=== PATIENT | male | born 2000 | race African-American/Black ===

== ENCOUNTER → 2024-08-29 | Outpatient (CLI) | payer OTHER ==
[~2024-08-29] MED LIST: LIDOCAINE 1% MDV 20ML VIAL As Ordered ONE
[2024-08-29 10:30] VITALS: TEMP 97.4
[2024-08-29 10:54] VITALS: BP 176/82; O2SAT 99
== END ==
LOC: M IRPRO 10:24
PROVIDERS: ATTEND Otolaryngology
DX: D11.0 Benign neoplasm of parotid gland (principal)

== ENCOUNTER 2024-09-05 10:07 | Emergency (ER) | payer OTHER ==
[~2024-09-05] VITALS: Ht 182.9 cm; Wt 139.0 kg
[2024-09-05 12:10] LABS: BASO % 0.4 % (0.0-1.0); EOS # 0.1 10^3/uL (0.0-0.5); EOS % 1.1 % (0.0-3.0); HEMATOCRIT 47.7 % (42.0-52.0); HEMOGLOBIN 14.8 g/dl (13.5-17.5); LYMPH # 2.3 10^3/uL (1.5-5.0); LYMPH % 32.7 % (24.0-44.0); MEAN CORPUSCULAR HEMOGLOBIN 25.5 pg (27.0-33.0); MEAN CORPUSCULAR VOLUME 82.1 fl (80.0-96.0); MONO # 0.6 10^3/uL (0.0-0.8); MONO % 7.8 % (2.0-8.0); NEUTROPHILS # 4.1 10^3/uL (1.5-8.5); NEUTROPHILS % 57.6 % (36.0-66.0); PLATELET COUNT, AUTOMATED 340 10^3/uL (150-450); RED BLOOD COUNT 5.81 10^6/uL (4.30-6.10); WHITE BLOOD COUNT 7.2 10^3/uL (4.0-10.0)
[2024-09-05 12:32] LABS: BLOOD UREA NITROGEN 13 MG/DL (9-23); C REACTIVE PROTEIN QUANTITATIV 0.52 MG/DL (<1.0); CALCIUM LEVEL 9.2 MG/DL (8.5-10.1); CARBON DIOXIDE LEVEL 28 MMOL/L (20-31); CHLORIDE LEVEL 103 MMOL/L (98-107); CREATININE FOR GFR 0.86 MG/DL (0.70-1.30); GLOMERULAR FILTRATION RATE > 60.0 (>60); GLUCOSE, FASTING 80 MG/DL (60-100); POTASSIUM SERUM 4.4 MMOL/L (3.5-5.1); SODIUM LEVEL 138 MMOL/L (136-145)
[2024-09-05 12:40] LABS: ERYTHROCYTE SEDIMENTATION RATE 24 mm/hr (0-15)
[2024-09-05] MEDS ORDERED: ISOVUE-370 76% 100ML VIAL As Ordered ONE (14:39)
[2024-09-05] MEDS: KETOROLAC 30 MG/ML 1ML VIAL IV ONE (14:41)
[2024-09-05] MEDS: dexAMETHasone 20MG/5ML VIAL IV ONE (14:52)
[2024-09-05] MEDS ORDERED: AMOX875T2 PO (15:48)
[2024-09-05 16:07] VITALS: BP 144/82; TEMP 97.4; O2SAT 99
== END 2024-09-05 16:09 | disposition home or self-care (01) ==
LOC: M ED 10:07
DX: K11.20 Sialoadenitis, unspecified (principal); K11.6 Mucocele of salivary gland; Z79.2 Long term (current) use of antibiotics
CPT/HCPCS: 70491; 80048; 85025; 85652; 86140; 87389; 96374; 96375; 99284; J1100; J1885; Q9967

== ENCOUNTER 2024-09-28 06:19 | Day surgery (SDC) | payer OTHER ==
[~2024-09-28] VITALS: Ht 182.9 cm; Wt 138.5 kg
[~2024-09-28 06:19] MED LIST changes: +AMOX875T2 PO; -LIDOCAINE 1% MDV 20ML VIAL As Ordered ONE
[2024-09-28] MEDS ORDERED: LR 1,000 ML IV SCH ×2 (06:25→09:35)
[2024-09-28] MEDS ORDERED: LIDOCAINE 2% 100MG/5ML SDV (FOR ANES.) As Ordered ONE (07:04)
[2024-09-28] MEDS ORDERED: propofoL 200 MG/20 ML VIAL As Ordered ONE (07:04)
[2024-09-28] MEDS ORDERED: ROCURONIUM BROMIDE 50MG/5ML VIAL As Ordered ONE (07:04)
[2024-09-28] MEDS ORDERED: fentaNYL 250 MCG/5 ML INJECTION As Ordered ONE (07:04)
[2024-09-28] MEDS ORDERED: MIDAZOLAM INJ 2MG/2ML VIAL As Ordered ONE (07:04)
[2024-09-28] MEDS ORDERED: BACITRACIN OINTMENT 30GM TUBE As Ordered ONE (07:20)
[2024-09-28] MEDS: ceFAZolin SODIUM 3 GM VIAL As Ordered ONE (07:57)
[2024-09-28] MEDS: LIDOCAINE W/EPINEPHRINE 1% 20ML VIAL As Ordered ONE (08:07)
[2024-09-28] MEDS ORDERED: SUCCINYLCHOLINE 100MG/5ML SYRINGE As Ordered ONE (08:50)
[2024-09-28] MEDS ORDERED: ACETAMINOPHEN 1000MG/100ML IV BAG As Ordered ONE (08:51)
[2024-09-28] MEDS ORDERED: ONDANSETRON 4MG 2ML VIAL As Ordered ONE (08:51)
[2024-09-28] MEDS ORDERED: KETOROLAC 30 MG/ML 1ML VIAL As Ordered ONE (08:51)
[2024-09-28] MEDS ORDERED: LACRILUBE (AKWA TEARS) OPHTH OINT 3.5GM As Ordered ONE (08:55)
[2024-09-28] MEDS ORDERED: MORPHINE 2 MG/ML 1ML VIAL IV PRN (09:35)
[2024-09-28] MEDS ORDERED: fentaNYL 100 MCG/2 ML INJECTION IV PRN (09:35)
[2024-09-28] MEDS ORDERED: fentaNYL 100 MCG/2 ML INJECTION As Ordered ONE (10:11)
[2024-09-28] MEDS: ONDANSETRON 4MG 2ML VIAL IV PRN (10:31)
[2024-09-28] MEDS: oxyCODONE 5MG TAB PO PRN (10:31)
[2024-09-28] MEDS ORDERED: DESFLURANE 240 ML INHALANT As Ordered ONE (11:05)
[2024-09-28 13:05] VITALS: BP 147/89; TEMP 97.5; O2SAT 97
== END 2024-09-28 13:25 | disposition home or self-care (01) ==
LOC: M SDC 06:19
PROVIDERS: ATTEND Otolaryngology
DX: D11.0 Benign neoplasm of parotid gland (principal)
CPT/HCPCS: 42415; 88305; J0131; J0330; J0690; J1100; J1885; J2250; J2405; J3010